=== PATIENT | female | born 1960 | race Caucasian/White ===

== ENCOUNTER 2016-06-20 15:39 | Emergency (ER) | payer MEDICARE, BC ==
[~2016-06-20] VITALS: Ht 152.4 cm; Wt 125.0 kg
[~2016-06-20 15:39] MED LIST: ATOR10TA65 PO; BENA20TA48 PO; CEPH-443 PO; ESTR1TAB23 PO; FER325 PO; GABA-528 PO; GLIM4TAB PO; IBUP-1542 PO; LANT3I SC; MEDR2.5T21 PO; METF1000 PO; PANT40TA3 PO
[2016-06-20 15:47] VITALS: Ht 152.4 cm; Wt 125.0 kg
[2016-06-20] MEDS ORDERED: CEPH500C PO (18:04)
[2016-06-20] MEDS ORDERED: MED4DP PO (18:04)
--- NOTE | 2016-06-20 20:15 | ERD ---
ER Documentation Chief Complaint Date/Time DATE: 06/20/16 TIME: 20:09 Chief Complaint bilateral eye pain HPI 56-year-old woman presents with itchy mild rash to the upper eyelids bilaterally times one week. She states a similar episode occurred last year and she was told she has early conjunctivitis and was treated with antibiotics with eventual resolution of symptoms. She denies conjunctival discharge, no blurry vision, no fevers or chills, no recent trauma, no chest pain or shortness of breath. ROS All systems reviewed and are negative except as per history of present illness. Medications Home Meds Active Scripts Methylprednisolone* (Medrol* DOSE PACK) 4 Mg/Dose-Pack Tab.ds.pk, 4 MG PO . DIRECTED, #1 PACKET Prov:HOA HERNÁNDEZ MD 06/20/16 Cephalexin* (Cephalexin*) 500 Mg Capsule, 500 MG PO Q8 for 5 Days, #15 CAP Prov:HOA HERNÁNDEZ MD 06/20/16 Cephalexin* (Keflex*) 500 Mg Capsule, 500 MG PO QID for 5 Days, CAP Prov:DAYNA GLAEANO MD 01/05/16 Ibuprofen* (Ibuprofen*) 600 Mg Tablet, 600 MG PO Q8 for PAIN, #30 TAB Prov:HOA HERNÁNDEZ MD 11/16/15 Cephalexin* (Keflex*) 500 Mg Capsule, 500 MG PO QID for 5 Days, CAP Prov:HOA HERNÁNDEZ MD 11/16/15 Reported Medications Insulin Glargine* (Lantus*) 100 Unit/Ml Soln, 53 UNITS SC QPM, #1 VIAL 11/16/15 Medroxyprogesterone Acetate* (Medroxyprogesterone Acetate*) 2.5 Mg Tablet, 2.5 MG PO DAILY, TAB 11/16/15 Pantoprazole* (Protonix*) 40 Mg Tablet.dr, 40 MG PO DAILY, TAB 11/16/15 Estradiol* (Estrace*) 1 Mg Tablet, 0.5 MG PO DAILY, TAB 11/16/15 Atorvastatin Calcium (Atorvastatin Calcium) 10 Mg Tablet, 10 MG PO QHS, #30 TAB 11/16/15 Ferrous Sulfate* (Ferrous Sulfate*) 325 Mg Tabec, 325 MG PO DAILY, TAB 11/16/15 Benazepril Hcl* (Benazepril Hcl*) 20 Mg Tablet, 20 MG PO DAILY, #30 TAB 11/16/15 Glimepiride* (Glimepiride*) 4 Mg Tablet, 4 MG PO DAILY, TAB 11/16/15 Metformin Hcl* (Metformin Hcl*) 1,000 Mg Tablet, 1000 MG PO BID, #60 TAB 11/16/15 Gabapentin* (Gabapentin*) 800 Mg Tablet, 800 MG PO TID, #90 TAB 11/16/15 Allergies Allergies: Coded Allergies: No Known Allergy (Unverified , 10/18/13) PMhx/Soc Hypertension, diabetes mellitus, hypercholesterolemia History of Surgery: No Anesthesia Reaction: No Hx Neurological Disorder: No Hx Cardiac Disorders: Yes (HYPERTENSION, ANEMIA) Hx Psychiatric Problems: No Hx Miscellaneous Medical Probl: Yes (DM, cholesterol, h/o shingles, DIABETIC NEUROPATHY) Hx Alcohol Use: No Hx Substance Use: Yes (EDIBLES ) Hx Tobacco Use: No Smoking Status: Never smoker FmHx Family History: diabetes Physical Exam Vitals Vital Signs Date Time Temp Pulse Resp B/P Pulse Ox O2 Delivery O2 Flow Rate FiO2 06/20/16 15:47 98.2 73 19 149/72 100 Physical Exam GENERAL: Well-developed, well-nourished, well-hydrated, in no apparent distress , looks nontoxic in appearance HEENT: Moist mucous membranes, pink conjunctiva, no cervical spine tenderness or step-off deformities, no goiter, no jaundice or icterus, extraocular movements intact without pain. No submandibular induration, and no pharyngeal erythema NEURO: Alert and oriented 3, cranial nerves II through XII intact bilaterally, pupils equal round reactive to light, no focal deficits or facial asymmetry, sensation intact distally Strength 5/5 in upper and lower extremities bilaterally CARDIAC: Regular rate and rhythm, no murmurs rubs or gallops LUNGS: Clear bilaterally no wheezing crackles or stridor ABDOMEN: Soft nontender, no guarding, no rigidity, no rebound, no psoas sign no obturator sign. Normoactive bowel sounds SKIN: There is dry scaly, excoriated skin over the upper eyelids bilaterally, no chalazion or hordeolum noted, no ecchymosis, no target lesions, and without ulcers EXTREMITIES: No clubbing cyanosis or edema, calves are bilaterally symmetrical, no Homans sign, no popliteal cord sign. Distal pulses equal and bilateral PSYCH: Normal affect without agitation or irritability Procedures/MDM I recommended a Medrol Dosepak with increased blood sugar checks and the appropriate insulin dosage adjustment. I suspect bilateral upper eyelid dermatitis and recommended she follow up with PMD. For possible early blepharitis I prescribed cephalexin. Differential diagnoses considered, included but not limited to acute coronary syndrome, pulmonary embolism, aortic dissection, abdominal aortic aneurysm, sepsis, stroke, meningitis, encephalitis, pneumonia, appendicitis, cholecystitis , bowel obstruction, pyelonephritis, nephrolithiasis, cystitis, as well as metabolic, hematologic, and electrolyte abnormalities. As well as abscess, cellulitis, fractures, and dislocations. Patient feels much better at this time, and vital signs are normal, symptoms have improved. I did give strict instructions to return to the ED if symptoms continue or worsen, patient will otherwise follow-up with primary care physician. Patient understood instructions and agreed to plan. Departure Diagnosis: Primary Impression: Blepharitis Blepharitis type: unspecified type Laterality: bilateral Eyelid: upper Qualified Code: H01.001 - Blepharitis of upper eyelids of both eyes, unspecified type Additional Impression: Dermatitis contact, eyelid Laterality: right Qualified Code: H01.113 - Dermatitis contact, eyelid, right Condition: Good Patient Instructions: Blepharitis, Dermatitis, Non-Specific HOA HERNÁNDEZ MD Jun 20, 2016 20:15
== END 2016-06-20 18:23 | disposition home or self-care (01) ==
LOC: FTE 15:39
DX: H01.001 Unspecified blepharitis right upper eyelid (principal); H01.111 Allergic dermatitis of right upper eyelid; H01.004 Unspecified blepharitis left upper eyelid; I10 Essential (primary) hypertension; E11.9 Type 2 diabetes mellitus without complications; Z79.4 Long term (current) use of insulin; Z79.84 Long term (current) use of oral hypoglycemic drugs
CPT/HCPCS: 99284

== ENCOUNTER 2016-07-18 16:47 | Emergency (ER) | payer MEDICARE, BC ==
[~2016-07-18] VITALS: Ht 160 cm; Wt 120.0 kg
[~2016-07-18 16:47] MED LIST changes: +CEPH500C PO; +MED4DP PO
[2016-07-18 17:13] VITALS: Ht 160 cm; Wt 120.0 kg
[2016-07-18] MEDS ORDERED: POLY10DR19 BOTH EYES (18:37)
[2016-07-18] MEDS ORDERED: HC30CR25 TOP (18:38)
[2016-07-18] MEDS ORDERED: CETI10CA PO (18:38)
--- NOTE | 2016-07-18 18:42 | ERD ---
ER Documentation Chief Complaint Date/Time DATE: 07/18/16 TIME: 18:39 Chief Complaint ANDREW EYE PAIN,REDNESS,YELLOWISH DISCHARGE. HPI Patient is a 56-year-old female with a past medical history of diabetes who presents to the ED with bilateral eyelid itchiness and right eye drainage. She states that she was here 2 weeks ago and was diagnosed with allergies. She states that she took a steroid and the antibiotics. She states that she followed up with her primary care provider and is planning on seeing a merchandise buyer. However she states that she did not get an appointment with the merchandise buyer decided to come here to the ED. she denies pain in her eyes are feeling like there is any foreign body sensation. She states that her eyelids and under her eyes are extremely itchy. She also states that this morning she woke up with her right eye shut with yellow drainage on her eyelids and crusting. She denies blurry vision. She denies headache or dizziness. She denies abdominal pain, nausea, vomiting or diarrhea. Denies chest pain, cough, shortness of breath or difficulty breathing. No other complaints. ROS All systems reviewed and are negative except as per history of present illness. Medications Home Meds Active Scripts Hydrocortisone* Topical (Hydrocortisone* Topical) 2.5%-28.3 Gm Cream..g., 1 APPLIC TOP BID, #1 TUB Prov:YUE HECTOR PA-C 07/18/16 Cetirizine Hcl* (Zyrtec*) 10 Mg Capsule, 10 MG PO DAILY, #20 TAB.CHEW Prov:YUE HECTOR PA-C 07/18/16 Polymyxin B Sulfate-TMP* (Polymyxin B-TMP Eye Drops*) 10 Ml Drops, 1 DROP BOTH EYES QID for 7 Days, EA Prov:YUE HECTOR-Fátima 07/18/16 Methylprednisolone* (Medrol* DOSE PACK) 4 Mg/Dose-Pack Tab.ds.pk, 4 MG PO . DIRECTED, #1 PACKET Prov:HOA HERNÁNDEZ MD 06/20/16 Cephalexin* (Cephalexin*) 500 Mg Capsule, 500 MG PO Q8 for 5 Days, #15 CAP Prov:HOA HERNÁNDEZ MD 06/20/16 Cephalexin* (Keflex*) 500 Mg Capsule, 500 MG PO QID for 5 Days, CAP Prov:DAYNA GALEANO MD 01/05/16 Ibuprofen* (Ibuprofen*) 600 Mg Tablet, 600 MG PO Q8 for PAIN, #30 TAB Prov:HOA HERNÁNDEZ MD 11/16/15 Cephalexin* (Keflex*) 500 Mg Capsule, 500 MG PO QID for 5 Days, CAP Prov:HOA HERNÁNDEZ MD 11/16/15 Reported Medications Insulin Glargine* (Lantus*) 100 Unit/Ml Soln, 53 UNITS SC QPM, #1 VIAL 11/16/15 Medroxyprogesterone Acetate* (Medroxyprogesterone Acetate*) 2.5 Mg Tablet, 2.5 MG PO DAILY, TAB 11/16/15 Pantoprazole* (Protonix*) 40 Mg Tablet.dr, 40 MG PO DAILY, TAB 11/16/15 Estradiol* (Estrace*) 1 Mg Tablet, 0.5 MG PO DAILY, TAB 11/16/15 Atorvastatin Calcium (Atorvastatin Calcium) 10 Mg Tablet, 10 MG PO QHS, #30 TAB 11/16/15 Ferrous Sulfate* (Ferrous Sulfate*) 325 Mg Tabec, 325 MG PO DAILY, TAB 11/16/15 Benazepril Hcl* (Benazepril Hcl*) 20 Mg Tablet, 20 MG PO DAILY, #30 TAB 11/16/15 Glimepiride* (Glimepiride*) 4 Mg Tablet, 4 MG PO DAILY, TAB 11/16/15 Metformin Hcl* (Metformin Hcl*) 1,000 Mg Tablet, 1000 MG PO BID, #60 TAB 11/16/15 Gabapentin* (Gabapentin*) 800 Mg Tablet, 800 MG PO TID, #90 TAB 11/16/15 Allergies Allergies: Coded Allergies: No Known Allergy (Unverified , 10/18/13) PMhx/Soc History of Surgery: No Anesthesia Reaction: No Hx Neurological Disorder: No Hx Respiratory Disorders: No Hx Cardiac Disorders: Yes (HYPERTENSION, ANEMIA) Hx Psychiatric Problems: No Hx Miscellaneous Medical Probl: Yes (DM, cholesterol, h/o shingles, DIABETIC NEUROPATHY) Hx Alcohol Use: No Hx Substance Use: Yes (EDIBLES ) Hx Tobacco Use: No Smoking Status: Never smoker FmHx Family History: No coronary disease, No diabetes, No other Physical Exam Vitals Vital Signs Date Time Temp Pulse Resp B/P Pulse Ox O2 Delivery O2 Flow Rate FiO2 07/18/16 17:13 98.3 78 20 147/65 98 Physical Exam GENERAL: Well-developed, well-nourished female. Appears in no acute distress. HEAD: Normocephalic, atraumatic. EYES: Pupils are equally reactive bilaterally. EOMs grossly intact. Right eye has mild conjunctival erythema. No gross foreign body seen. Eczema headache lesions with excoriation bilateral upper eyelid and underneath eye. No pain with EOM. ENT: Moist mucous membranes. No uvula deviation. No kissing tonsils. No exudates. NECK: Supple. No lymphadenopathy or thyromegaly. No meningismus. negative kernig. negative brudinski. LUNG: Clear to auscultation bilaterally. No rhonchi, wheezing, rales or coarse breath sounds. HEART: Regular rate and rhythm. No murmurs, rubs or gallops. SKIN: Normal color. Warm and dry. No rashes or lesions. Capillary refill < 2 seconds Procedures/MDM ER COURSE: I kept the patient and/or family informed of laboratory and diagnostic imaging results throughout the emergency room course. MEDICAL DECISION MAKING: This is a 56-year-old female who presents with eyelid itchiness and drainage. Vital signs were reviewed. Patient is afebrile. Patient is not hypoxic. Patient is not toxic or ill-appearing. Patient likely has eyelid dermatitis of unknown etiology and conjunctivitis. Low suspicion for acute angle closure glaucoma, retinal detachment, arterial occlusion, hemorrhage, fracture, foreign body, ruptured globe, orbital cellulitis. I did not think a full eye exam was necessary today here in the ED. No Grayson-Pen or Burns lamp was done. Patient did not have any foreign body sensation or pain. DISCHARGE: At this time, patient is stable for discharge and outpatient management with no new complaints during the ER course. Patient was sent home with Polytrim, Zyrtec and hydrocortisone. Advised patient to follow-up with [facility] and her merchandise buyer.. Patient will be discharged home with instructions to recheck for new or worsening symptoms such as fever, nausea, weakness, LOC and to follow up with primary care in the next 1-2 days. Patient was advised to return to the ER for any new or worsening symptoms. Plan was discussed and patient and/or family understands and agrees. Home instructions were given. Departure Diagnosis: Primary Impression: Dermatitis, eyelid Laterality: bilateral Qualified Code: H01.9 - Dermatitis of eyelids of both eyes Condition: Stable Patient Instructions: Dermatitis, Non-Specific Referrals: [facility] Hours: Mon - Fri 9:00 AM - 5:00 PM Additional Instructions: Call your primary care doctor TOMORROW for an appointment during the next 1-2 days.See the doctor sooner or return here if your condition worsens before your appointment time. YUE HECTOR PA-C Jul 18, 2016 18:42
== END 2016-07-18 19:03 | disposition home or self-care (01) ==
LOC: FTE 16:47
DX: H01.9 Unspecified inflammation of eyelid (principal); I10 Essential (primary) hypertension; E11.9 Type 2 diabetes mellitus without complications; Z79.4 Long term (current) use of insulin; Z79.84 Long term (current) use of oral hypoglycemic drugs
CPT/HCPCS: 99283

== ENCOUNTER → 2017-12-01 | Emergency (ER) | END | disposition home or self-care (01) ==

== ENCOUNTER 2018-01-18 17:32 | Emergency (ER) | END 2018-01-18 19:44 | disposition home or self-care (01) ==

== ENCOUNTER 2018-08-24 22:11 | Emergency (ER) | payer MEDICARE, BC ==
[~2018-08-24] VITALS: Ht 152.4 cm; Wt 119.9 kg
[~2018-08-24 22:11] MED LIST changes: +BEN50 PO; +BENA20TA4 PO; -BENA20TA48 PO; +CETI10CA PO; +HC30CR25 TOP; +IBUP-1561 PO; +LORA-441 PO; -METF1000 PO; +METF100010 PO; +POLY10DR19 BOTH EYES; +TRIA15CR55 TOP
[2018-08-24 22:14] VITALS: Ht 152.4 cm; Wt 119.9 kg
[2018-08-24] MEDS ORDERED: KETOROLAC 15 MG INJ IM STA (22:42)
[2018-08-24] MEDS ORDERED: DEXAMETHASONE 10 MG/ML 1 ML INJ IM ONE (23:00)
[2018-08-24] MEDS ORDERED: LIDOCAINE 2% VISC 15 ML CUP PO ONE (23:00)
--- NOTE | 2018-08-24 23:03 | ERD ---
ER Documentation Chief Complaint Chief Complaint ST x 5 days HPI This is a 58-year-old female with a past medical history of hypertension, hyperlipidemia, diabetes, now presenting for 5 days of sore throat. The patient reports approximately 2 weeks of productive cough of clear sputum, cold symptoms, nasal congestion and rhinorrhea. The patient has been evaluated by her primary care physician and ultimately diagnosed with bronchitis and given medications for symptom control. The patient's symptoms have persisted, now the patient endorses a sore throat. She also endorses a hoarse voice. Her symptoms are worse in the morning. She does not endorse any alleviating or exacerbating factors. She has not been on any antibiotics for her symptoms. She feels generally unwell, but she does not currently endorse a fever. While the patient endorses a hoarse voice, she does not endorse any drooling. She does not have any difficulty swallowing. She is able to move her tongue without difficulty. The patient has had no headache or vision changes. The patient does not endorse neck or back pain. The patient denies lightheadedness or dizziness. The patient has had no chest pain or trouble breathing. The patient denies nausea or vomiting. The patient denies abdominal pain. The patient denies changes to bowel movements or urination. The patient has had no focal deficits. The patient has had no weakness or numbness or tingling to the face or extremities. ROS All systems reviewed and are negative except as per history of present illness. Medications Home Meds Active Scripts Ibuprofen* (Motrin*) 400 Mg Tab, 400 MG PO Q8, #20 TAB Prov:MAHESH WALDROP MD 01/18/18 Lorazepam* (Ativan*) 0.5 Mg Tablet, 0.5 MG PO Q8H PRN for ANXIETY, #10 TAB Prov:MAHESH WALDROP MD 01/18/18 Diphenhydramine Hcl* (Benadryl*) 50 Mg Cap, 50 MG PO Q6 PRN for RASH, #20 CAP Prov:DANDRE GRIJALVA MD 12/01/17 Triamcinolone Acetonide (Triamcinolone Acetonide) 0.1% - 15 Gm Cream.gm., 1 APPLIC TOP BID for 7 Days, #1 TUB Prov:DANDRE GRIJALVA MD 12/01/17 Hydrocortisone* Topical (Hydrocortisone* Topical) 2.5%-28.3 Gm Cream..g., 1 APPLIC TOP BID, #1 TUB Prov:YUE HECTOR PA-C 07/18/16 Cetirizine Hcl* (Zyrtec*) 10 Mg Capsule, 10 MG PO DAILY, #20 TAB.CHEW Prov:YUE HECTOR PA-C 07/18/16 Polymyxin B Sulfate-TMP* (Polymyxin B-TMP Eye Drops*) 10 Ml Drops, 1 DROP BOTH EYES QID for 7 Days, EA Prov:YUE HECTOR PA-C 07/18/16 Methylprednisolone* (Medrol* DOSE PACK) 4 Mg/Dose-Pack Tab.ds.pk, 4 MG PO . DIRECTED, #1 PACKET Prov:HOA HERNÁNDEZ MD 06/20/16 Cephalexin* (Cephalexin*) 500 Mg Capsule, 500 MG PO Q8 for 5 Days, #15 CAP Prov:HOA HERNÁNDEZ MD 06/20/16 Cephalexin* (Keflex*) 500 Mg Capsule, 500 MG PO QID for 5 Days, CAP Prov:DAYNA GALEANO MD 01/05/16 Ibuprofen* (Ibuprofen*) 600 Mg Tablet, 600 MG PO Q8 for PAIN, #30 TAB Prov:HOA HERNÁNDEZ MD 11/16/15 Cephalexin* (Keflex*) 500 Mg Capsule, 500 MG PO QID for 5 Days, CAP Prov:HOA HERNÁNDEZ MD 11/16/15 Reported Medications Insulin Glargine* (Lantus*) 100 Unit/Ml Soln, 53 UNITS SC QPM, #1 VIAL 11/16/15 Medroxyprogesterone Acetate* (Medroxyprogesterone Acetate*) 2.5 Mg Tablet, 2.5 MG PO DAILY, TAB 11/16/15 Pantoprazole* (Protonix*) 40 Mg Tablet.dr, 40 MG PO DAILY, TAB 11/16/15 Estradiol* (Estrace*) 1 Mg Tablet, 0.5 MG PO DAILY, TAB 11/16/15 Atorvastatin Calcium (Atorvastatin Calcium) 10 Mg Tablet, 10 MG PO QHS, #30 TAB 11/16/15 Ferrous Sulfate* (Ferrous Sulfate*) 325 Mg Tabec, 325 MG PO DAILY, TAB 11/16/15 Benazepril Hcl* (Benazepril Hcl*) 20 Mg Tablet, 20 MG PO DAILY, #30 TAB 11/16/15 Glimepiride* (Glimepiride*) 4 Mg Tablet, 4 MG PO DAILY, TAB 11/16/15 Metformin Hcl* (Metformin Hcl*) 1,000 Mg Tablet, 1000 MG PO BID, #60 TAB 11/16/15 Gabapentin* (Gabapentin*) 800 Mg Tablet, 800 MG PO TID, #90 TAB 11/16/15 Allergies Allergies: Coded Allergies: No Known Allergy (Unverified , 10/18/13) PMhx/Soc Medical and Surgical Hx: pt denies Surgical Hx History of Surgery: No Anesthesia Reaction: No Hx Neurological Disorder: No Hx Respiratory Disorders: No Hx Cardiac Disorders: Yes (Hypertension, hyperlipidemia, diabetes, anemia) Hx Psychiatric Problems: No Hx Miscellaneous Medical Probl: Yes (h/o shingles, GERD, diabetic neuropathy) Hx Alcohol Use: No Hx Substance Use: Yes (EDIBLES ) Hx Tobacco Use: No Smoking Status: Never smoker FmHx Family History: No diabetes Physical Exam Vitals Vital Signs Date Temp Pulse Resp B/P (MAP) Pulse Ox O2 O2 Flow FiO2 Time Delivery Rate 08/24/18 98.8 107 24 140/60 98 22:14 (86) Physical Exam Const: No acute distress Head: Atraumatic Eyes: Normal Conjunctiva ENT: Normal External Ears, Nose and Mouth. Hoarse voice, no drooling. Mild bilateral tonsillar enlargement with exudate, not kissing. No oropharyngeal erythema. Airway is patent. Neck: Full range of motion. No meningismus. No stridor Resp: Clear to auscultation bilaterally Cardio: Regular rate and rhythm, no murmurs Abd: Soft, non tender, non distended. Normal bowel sounds Skin: No petechiae or rashes Back: No midline or flank tenderness Ext: No cyanosis, or edema Neur: Awake and alert Psych: Normal Mood and Affect Results 24 hrs Current Medications Medications Dose Sig/Armani Start Time Status Last (Trade) Ordered Route PRN Stop Time Admin Dose Reason Admin 10 mg ONCE ONCE 08/24/18 Dexamethasone IM 23:00 (Decadron) 08/24/18 23:01 Ketorolac 15 mg ONCE STAT 08/24/18 DC Tromethamine IM 22:42 (Toradol) 08/24/18 22:44 Lidocaine 15 ml ONCE ONCE 08/24/18 (Xylocaine PO 23:00 (Viscous)) 08/24/18 23:01 Procedures/MDM MDM The patient's presentation warrants further investigation. Previous medical records, if available, were reviewed. LABS The patient's laboratory testing was obtained and reviewed. No emergent treatment was required unless described below. Rapid strep: Pending TREATMENT/DISPOSITION The patient symptoms are consistent with pharyngitis. Rapid strep is certainly a possibility, and the test has been sent off. Given the longevity of the patient's symptoms lasting over 2 weeks, the possibility of a bacterial infection at this time is increased. I do feel the patient would benefit from a course of azithromycin. I do not feel the patient needs to wait in the emergency department to have the rapid strep completed. She may follow-up with a primary care physician who can follow-up on the results. The patient's symptoms do appear related more to her upper airway. I have low suspicion for pneumonia. I do not suspect peritonsillar abscess or retropharyngeal abscess or bacterial tracheitis. There is no evidence of otitis media. The patient's airway is intact. I do not suspect impending airway compromise. There is no evidence of angioedema. I have low suspicion for Lele angina. The patient was treated with Toradol, Decadron and viscous lidocaine for symptom control. DISCHARGE Upon reevaluation of the patient, symptoms have improved. No emergent diagnoses were identified. At this time, I feel that the patient stable for discharge. The patient was instructed to follow-up with a primary care physician in 1-3 days. The patient will be given strict precautions with which to return to the emergency department. Prescriptions: Azithromycin The patient's blood pressure was elevated at greater than 120/80 while in the emergency department. The patient was otherwise stable with no evidence of hypertensive urgency or emergency. The patient does not require admission for blood pressure control. I have discussed with the patient the risks of hypertension. I have instructed the patient to return to the ER for any new or worsening symptoms including chest pain, shortness of breath, headache, blurred vision, confusion, nausea, vomiting or LOC. I have advised the patient to follow up with the primary care physician for outpatient monitoring and treatment for hypertension in 1-3 days. Disclaimer: Inadvertent spelling and grammatical errors are likely due to EHR/dictation software use and do not reflect on the overall quality of patient care. Note that the electronic time recorded on this note does not necessarily reflect the actual time of the patient encounter. Departure Diagnosis: Primary Impression: Pharyngitis Pharyngitis/tonsillitis etiology: unspecified etiology Qualified Codes: J02.9 - Acute pharyngitis, unspecified Additional Impressions: Upper respiratory infection URI type: unspecified URI Qualified Codes: J06.9 - Acute upper respiratory infection, unspecified Sore throat Condition: Stable Patient Instructions: Preventing Common Respiratory Infections, When You Have a Sore Throat, Self-Care for Sore Throats Additional Instructions: Thank you for for coming to [facility] for your care today. Please ask your nurse or provider if you have questions about your care today and do not leave until all your questions have been answered. Please use any medications given as directed and follow-up with your doctor (or the doctor you were referred to) in the next 1-3 days. If you do not have a primary care doctor you may follow up at the [facility] or critical access hospital clinic (listed below). You may also use motrin and tylenol as needed for fever and/or pain unless instructed otherwise by your provider or nurse. Indications for more urgent follow-up have been discussed, but you may return to the Emergency Department at ANY time for any worrisome or worsening symptoms. If you have abdominal pain, please know that no test or exam you received is perfect and you should follow up within 8 hours for continued pain. If you had any imaging studies today, such as an X-Ray or CT Scan, these studies will be reviewed later by a radiologist. You will be called if there are important findings that were not identified today, so make sure the contact information you provided at registration is correct. If you received any narcotic pain control medicine today, such as Vicodin, Morphine or Dilaudid, your coordination and judgment may be affected for a number of hours. Please do not drive or operate heavy machinery, and you may want someone to assist you at home. If you were given a prescription for narcotic medication, be aware that it is very addictive- use sparingly and only if necessary. PLEASE SEEK FURTHER EVALUATION AND MANAGEMENT AT YOUR DOCTORS OFFICE WITHIN THE NEXT 1-3 DAYS. IT IS YOUR RESPONSIBILITY TO MAKE AN APPOINTMENT FOR FOLOW-UP CARE. IF YOU HAVE A PRIMARY DOCTOR, PLEASE CALL THEIR OFFICE TO SCHEDULE AN APPOINTMENT FOR FOLLOW UP. IF YOU DO NOT HAVE A PRIMARY DOCTOR YOU CAN CALL OUR PHYSICIAN REFERRAL HOTLINE AT IF YOU CAN NOT AFFORD TO SEE A PHYSICIAN YOU CAN CHOSE FROM THE FOLLOWING [facility] CLINICS: [facility] [address] [facility]. [facility] [address] [facility] [address] [facility] [address] [facility]. [facility] [address] [facility]. [facility]. [address] MAIA DOYLE MD August 24, 2018 23:03
[2018-08-24] MEDS ORDERED: AZIT250T PO (23:04)
[2018-08-25 00:15] VITALS: BP 161/74; PULSE 83; RESP 20
== END 2018-08-25 00:28 | disposition home or self-care (01) ==
LOC: FTE 22:11
DX: J02.9 Acute pharyngitis, unspecified (principal); I10 Essential (primary) hypertension; E11.9 Type 2 diabetes mellitus without complications; J06.9 Acute upper respiratory infection, unspecified; Z79.4 Long term (current) use of insulin
CPT/HCPCS: 87880; 96372; 99284; J1100; J1885